=== PATIENT | male | born 1960 | race African-American/Black ===

== ENCOUNTER 2016-04-28 14:22 | Emergency (ER) | payer OTHER ==
[~2016-04-28] VITALS: Ht 188 cm; Wt 95.3 kg
[~2016-04-28 14:22] MED LIST: PERMETHRIN60 GM TOP
[2016-04-28 14:51] VITALS: BP 138/78
--- NOTE | 2016-04-28 16:01 | ED GI/GU/ABDOMINAL COMPLAINT ---
History of Present Illness General Chief Complaint: Male Genitourinary Problems Stated Complaint: URINARY PAIN Source: patient Exam Limitations: no limitations Vital Signs & Intake/Output Vital Signs & Intake/Output Vital Signs Date Time Temp Pulse Resp B/P Pulse O2 O2 Flow FiO2 Ox Delivery Rate 04/28 1451 97.8 68 18 138/78 98 Room Air Allergies Coded Allergies: NO KNOWN ALLERGIES (12/01/12) Reconcile Medications Permethrin 5 % CREAM..G. 1 JIHAN TOP ONCE pediculosis massage into skin from head to soles of feet one time, leave on for 8-14 hours then remove by thorough washing Triage Note: RECEIVED 55 YO MALE C/O FATIGUE STARTED THIS SATURDAY AND STARTED GETTING BURNING WITH URINATION, STARTED LAST NIGHT, CONTINUES TODAY. Triage Nurses Notes Reviewed? yes Onset: Abrupt Duration: day(s): (2), constant, continues in ED Timing: recent history Quality/Severity: burning Location: urethral Radiation: no radiation Activities at Onset: none No Modifying Factors: none HPI: 55-year-old male comes into emergency room with complaints of burning with urination this been going on for the past couple days. Patient denies any discharge. Patient was sexually active 6 months ago. Denies any back pain fever chills vomiting. Denies any abdominal pain. Denies any prior history of this or any other associated symptoms. (JASPAL BARTHOLOMEW) Past History Travel History Traveled to [place] past 21 day No Medical History Any Pertinent Medical History? see below for history Neurological: NONE EENT: NONE Cardiovascular: NONE Respiratory: NONE Gastrointestinal: NONE Hepatic: NONE Renal: NONE Musculoskeletal: BACK PAIN Psychiatric: NONE Endocrine: NONE Blood Disorders: NONE Cancer(s): NONE Surgical History Surgical History: none Psychosocial History What is your primary language Spanish Tobacco Use: Current Daily Use Daily Tobacco Use Amount/Type: => 5 Cigarettes daily Family History Hx Contributory? No (JASPAL BARTHOLOMEW) Review of Systems Review of Systems Constitutional: Reports: no symptoms. EENTM: Reports: no symptoms. Respiratory: Reports: no symptoms. Cardiovascular: Reports: no symptoms. GI: Reports: no symptoms. Genitourinary: Reports: see HPI. Musculoskeletal: Reports: no symptoms. Skin: Reports: no symptoms. Neurological/Psychological: Reports: no symptoms. Hematologic/Endocrine: Reports: no symptoms. Immunologic/Allergic: Reports: no symptoms. All Other Systems: Reviewed and Negative (JASPAL BARTHOLOMEW) Physical Exam Physical Exam General Appearance: well developed/nourished, alert, awake Head: atraumatic, normal appearance Eyes: Bilateral: normal appearance. Ears, Nose, Throat, Mouth: hearing grossly normal, moist mucous membrane Neck: normal inspection Respiratory: normal breath sounds, no respiratory distress Cardiovascular: regular rate/rhythm Gastrointestinal: soft Back: normal inspection Extremities: normal range of motion Neurologic/Psych: awake, alert, oriented x 3, normal gait, abnormal cerebellar tests Skin: intact, normal color Core Measures ACS in differential dx? No Severe Sepsis Present: No Septic Shock Present: No (JASPAL BARTHOLOMEW) Progress Differential Diagnosis: orchitis, prostatitis, peptic ulcer, perforated viscous, pyelonephritis, STD, testicular torsion, ureterolithiasis, urinary retention, urethritis, UTI/pyelo Plan of Care: Orders Procedure Date/time Status Add-on Test (ER Only) 04/28 1606 Active CHLAMYDIA-GC DNA PROBE 04/28 1504 Active CULTURE,URINE 04/28 1449 Active URINALYSIS 04/28 1449 Complete Laboratory Tests 04/28/16 1504: Urine Color YEL, Urine Clarity CLEAR, Urine pH 6.5, Ur Specific Capulin 1.025, Urine Protein NEG, Urine Ketones NEG, Urine Nitrite NEG, Urine Bilirubin NEG, Urine Urobilinogen 0.2, Ur Leukocyte Esterase NEG, Ur Microscopic EXAM NOT REQUIRED, Urine Hemoglobin NEG, Urine Glucose NEG Microbiology 04/28 1504 URINE ROUT: GC DNA Probe - RECD 04/28 1504 URINE ROUT: Chlamydia DNA Probe (MAGGY) - RECD 04/28 1504 URINE ROUT: Urine Culture - RECD Initial ED EKG: none (JASPAL BARTHOLOMEW) Departure Departure Disposition: HOME OR SELF CARE Condition: Stable Clinical Impression Primary Impression: Dysuria Referrals: JACKY CHRISTY,TEMI CARABALLO MD,MARY (PCP/Family) Additional Instructions: Follow-up with urologist provided. Return to the emergency room immediately if any worsening symptoms. Return if any abdominal pain. Please go over all results of today's visit with your primary care doctor. Contact your primary care doctor to let them know you were here in the emergency room. There may be nonspecific findings which may not be related to your visit today here in the emergency room but may require further evaluation and chronic monitoring by your primary care doctor. If you had a laceration today the chance of foreign body always remains. You should follow-up with your primary care doctor for recheck in 3-5 days for a wound check. If you had an x-ray done there is a chance that a fracture could have been missed on initial read and you should follow-up with your primary care doctor for repeat x-rays if symptoms persist. If your blood pressure was elevated here in the emergency room please have rechecked by her primary care doctor within the next 48 hours by your primary care doctor. If you were prescribed a narcotic here in the emergency room or any type of controlled substances you're not allowed to drive while taking this medication or operate any type of heavy machinery. Narcotics can make you feel lightheaded dizziness nausea and can cause constipation. You may need to slate picker a stool softener. Thank you for choosing [facility] emergency room. Please return to the emergency room immediately if you have any other concerns worsening of symptoms. Departure Forms: Customer Survey General Discharge Information Comments 04/28/2016 5:13:52 PM Patient clinically looks well. Patient is nontoxic-appearing. Patient is no apparent distress. Patient has no abdominal pain on exam. Patient denies any discharge but gonorrhea and chlamydia was sent off. Patient was medicated with Rocephin and azithromycin to cover possible prophylactic. No clear source as to why the patient is having dysuria. Patient clinically looks well. UA was normal. Culture sent off. Patient was referred to urology. Due to the fact that the patient has no other symptoms such as testicular pain abdominal pain fever chills vomiting and do not feel patient requires any further workup at this time. Patient can safely follow-up as an outpatient with urology and return if any worsening of symptoms. Shared decision making. (JASPAL BARTHOLOMEW) PA/SHEEP BONER Co-Sign Statement Statement: ED Attending supervision documentation- [] I saw and evaluated the patient. I have also reviewed all the pertinent lab results and diagnostic results. I agree with the findings and the plan of care as documented in the PA's/SHEEP BONER's documentation. [X] I have reviewed the ED Record and agree with the PA's/SHEEP BONER's documentation. [] Additions or exceptions (if any) to the PAs/SHEEP BONER's note and plan are summarized below: [] (CHRIS LIMON DO)
== END 2016-04-28 16:38 ==
LOC: ERH 14:22
DX: R30.0 Dysuria (principal)
CPT/HCPCS: 81003; 87086; 87491; 87591; 96372; J0696